=== PATIENT | female | born 1945 | race American Indian/Alaskan Native ===

== ENCOUNTER 2019-08-10 15:53 | Emergency (ER) | payer MEDICARE, SELFPAY ==
[2019-08-10 16:00] VITALS: BP 141/83; PULSE 101; RESP 22; TEMP 36.6; O2SAT 99; BMI 29.2
--- NOTE | 2019-08-10 16:11 | DI.RAD.S_ITS ---
PROCEDURE: XR CHEST 2V INDICATIONS: shortness of breath TECHNIQUE: 2 views of the chest were acquired. COMPARISON: None. FINDINGS: Surgical changes and devices: None. Lungs and pleura: Lungs are clear. No pleural effusions or pneumothorax. Mediastinum: Mediastinal contours are normal. Heart size is normal. Bones and chest wall: No suspicious bony abnormalities. Soft tissues appear unremarkable. IMPRESSION: No acute disease Dictated by: Jay Singer M.D. on 08/10/2019 at 17:19 Approved by: Jay Singer M.D. on 08/10/2019 at 17:19
[2019-08-10 16:46] LABS: Add Manual Diff / Slide Review NO; Basophils Absolute Auto 100 /uL (0-100); Basophils Percent Auto 1.1 % (0-2); Eosinophils Absolute Auto 300 /uL (0-450); Eosinophils Percent Auto 2.2 % (2-4); Hematocrit 48.8 % (36-46); Hemoglobin 16.4 g/dL (12.0-16.0); Lymphocytes Absolute Auto 3300 /uL (1100-4500); Mean Corpuscular HGB Conc 33.7 % (30-36); Mean Corpuscular Hemoglobin 31.5 PG (26-34); Mean Corpuscular Volume 93.6 fL (80-100); Monocytes Absolute Auto 700 /uL (0-900); Monocytes Percent Auto 5.8 % (3-14); Neutrophils Absolute Auto 7100 /uL (1500-7000); Neutrophils Percent Auto 61.9 % (50-75); Platelet Count 264 X10^3/uL (150-400); Red Blood Cell Count 5.21 X10^6/uL (4.0-5.2); Red Cell Distribution Width 13.8 % (11.6-14.8); White Blood Cell Count 11.4 X10^3/uL (4.5-11.0)
[2019-08-10 16:51] LABS: Prothrombin Time 11.3 SECONDS (10.1-12.7)
[2019-08-10 16:53] LABS: PTT Partial Thromboplastin Tim 33 SECONDS (26.4-36.2)
[2019-08-10 16:54] LABS: Alanine Aminotransferase 35 IU/L (9-52); Albumin 4.6 g/dL (3.5-5.0); Albumin Globulin Ratio 1.6 (1.0-2.8); Alkaline Phosphatase 75 U/L (38-126); Aspartate Aminotransferase 26 IU/L (14-36); BUN Creatinine Ratio 26.7 (6-22); Bilirubin Total 0.5 mg/dL (0.2-1.3); Blood Urea Nitrogen 16 mg/dL (7-17); Calcium 9.6 mg/dL (8.4-10.2); Carbon Dioxide 23 mmol/L (22-32); Chloride 104 mmol/L (98-107); Creatine Kinase 47 U/L (30-135); Estimated Glomerular Filt Rate > 60.0 mL/min (>60); Globulin 2.9 g/dL (1.7-4.1); Glucose 110 mg/dL (80-110); HEMOLYSIS < 15 (0-50); Lipase 110 U/L (23-300); Potassium 4.1 mmol/L (3.4-5.1); Sodium 138 mmol/L (137-145); Total Protein 7.5 g/dL (6.3-8.2)
[2019-08-10 17:06] LABS: B Type Natriuretic Peptide < 100 (<100); Troponin I < 0.012 ng/mL (0.01-0.034)
--- NOTE | 2019-08-10 18:07 | ED.SOB ---
HPI - SOB/Dyspnea General Chief Complaint: Shortness of Breath/Dyspnea Stated Complaint: HEART ISSUES Time Seen by Provider: 08/10/19 18:03 Source: patient Mode of arrival: Ambulatory Limitations: no limitations History of Present Illness HPI Narrative: The patient is here due to dyspnea. She has been under evaluation for dyspnea for the past year, approximately. She has a primary care doctor in [place], and she has been consult to both a youth care specialist and senior product development manager. She has undergone extensive evaluation, including a detailed Cardiology evaluation. More recently she has undergone pulmonology evaluation including PFTs, CT a chest and even more recently a high-resolution chest CT. No significant pulmonary abnormality has been discovered. She is a not a smoker. She has no asthma. She is on CPAP. She has been experiencing progressive dyspnea on exertion. She awoke this morning, with abnormally high CPAP settings. She was having dyspnea at rest. Dyspnea rest is a new, possibly progressive finding for her. She denies recent illness. She has no dyspnea while here in the ER. She speaks in full sentences without discomfort. The pulmonology evaluation is ongoing you in recent days. She is scheduled to visit her youth care specialist again soon. She has previously undergone echo, cardiac catheterization, a comprehensive evaluation. With a cough prazosin there was no evidence of CAD. She is on medications for hypertension. Records indicate the significant finding was diastolic heart failure, but not dramatic. Her last echo was about 1 year ago. Symptoms have been progressive over this time period. 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 Related Data Home Medications Medication Instructions Recorded Confirmed Calcium 500 + D 1 tab PO DAILY 08/10/19 08/10/19 Thera Tears 1 cap PO DAILY 08/10/19 08/10/19 amlodipine 7.5 mg PO DAILY 08/10/19 08/10/19 aspirin 81 mg PO DAILY 08/10/19 08/10/19 atorvastatin 10 mg PO DAILY 08/10/19 08/10/19 fluoxetine 20 mg PO DAILY 08/10/19 08/10/19 lamotrigine 200 mg PO DAILY 08/10/19 08/10/19 lisinopril 40 mg PO DAILY 08/10/19 08/10/19 metoprolol succinate 50 mg PO DAILY 08/10/19 08/10/19 [id number]-fish oil-D3 1 cap PO DAILY 08/10/19 08/10/19 omeprazole 20 mg PO DAILY 08/10/19 08/10/19 Allergies Allergy/AdvReac Type Severity Reaction Status Date / Time hydrocodone Allergy Severe Rash Verified 08/10/19 16:06 Sulfa (Sulfonamide Allergy Severe Rash Verified 08/10/19 16:06 Antibiotics) Review of Systems Review of Systems ROS Unobtainable: All systems reviewed & are unremarkable except as noted in HPI and below Constitutional Constitutional: Denies chills, Denies fever(s), Denies lethargy, Denies snoring and Denies weakness Eyes Eyes: Denies change in vision, Denies eye discharge, Denies irritation and Denies loss of vision ENT Ears, Nose, Mouth, and Throat: Denies change in voice, Denies neck pain and Denies sore throat Cardiovascular Cardiovascular: Denies chest pain, Denies irregular heart rhythm, Denies lightheadedness, Denies palpitations, Reports dyspnea, Reports dyspnea on exertion and Denies orthopnea Respiratory Respiratory: Denies cough, Reports dyspnea, Reports dyspnea on exertion, Denies snoring and Denies wheezing Comments: She is on CPAP for obstructive sleep apnea. Gastrointestinal Gastrointestinal: Denies abdominal pain, Denies change in bowel habits, Denies diarrhea, Denies nausea and Denies vomiting Musculoskeletal Musculoskeletal: Denies neck pain Integumentary/Breasts Skin/Breast: Denies pruritus, Denies erythema, Denies rash and Denies wounds Neurologic Neurologic: Denies confusion, Denies loss of vision and Denies weakness Psychiatric Psychiatric: Denies anxiety, Denies confusion and Denies depression Endocrine Endocrine: Denies palpitations Hematologic/Lymphatic Hematologic/Lymphatic: Denies easy bruising Allergic/Immunologic Allergic/Immunologic: Denies wheezing COUNTS INCLUDE 234 BEDS AT THE [facility] Medical History (Updated 08/11/19 @ 05:37 by Jose Aragon MD) Dyspnea (Acute) Hypertension (Acute) Obstructive sleep apnea (Acute) Urinary incontinence (Acute) Surgical History (Updated 08/11/19 @ 05:37 by Jose Aragon MD) No significant past surgical history (Acute) Social History Smoking Status: Never smoker Social History Smoking Status: Never smoker Exam Initial Vital Signs Initial Vital Signs: Vital Signs Temperature 97.8 F 08/10/19 16:00 Pulse Rate 101 H 08/10/19 16:00 Respiratory Rate 22 08/10/19 16:00 Blood Pressure 141/83 H 08/10/19 16:00 Pulse Oximetry 99 08/10/19 16:00 Const General: cooperative and well developed Nutritional Appearance: well nourished Orientation: alert, awake, oriented x3 and not confused [facility] Head: normocephalic and atraumatic Face and sinus: face symmetric Mouth: oral mucosae normal and moist mucous membranes Throat: posterior oropharynx normal, tonsils normal and uvula midline Eyes General: appearance normal, both eyes and all related structures Eyelids: eyelids normal Conjunctivae: conjunctivae normal Sclera: sclerae normal Pupils: PERRL EOM: EOM intact bilaterally Neck Neck: No JVD Chest Chest: normal inspection of the chest Resp Effort & Inspection: normal respiratory effort and able to speak in complete sentences Auscultation: clear to auscultation bilaterally, no rales, no rhonchi and no wheezes Cardio Rate: regular rate Rhythm: regular rhythm Heart Sounds: S1 normal, S2 normal, no click, no gallops, no murmurs and no rubs Pulses: normal peripheral pulses GI Inspection: non-distended Palpation: soft, no hepatosplenomegaly, No guarding, No pulsatile mass and No tender Auscultation: normal bowel sounds Back/Spine/Pelvis Back: normal to inspection Skin General: no rashes or lesions noted and No jaundice Neuro General: alert, oriented x3, gait normal and no focal motor deficits Speech: speech normal Extrem General: full ROM, no clubbing, cyanosis or edema and no pedal edema Psych Appearance: well kempt Mental Status: mental status grossly normal Attitude: cooperative Thought Content: normal Judgment: judgment good Course Course Course Narrative: Lab evaluation, EKG, and chest x-ray showed no evidence of acute cardiopulmonary problems. Per her history, her symptoms of a more chronic basis. Sleep apnea is been addressed. Hypertension has been addressed. The pulmonary evaluation is detailed, but not yielding significant findings. In the past evaluation her cardiac evaluation has been overall benign, but her symptoms have been progressive. I have similar concerns the raising her clinician's notes, possibly a cardiomyopathy that has been progressive over this past year. I discussed the necessity with the patient of following up with her youth care specialist for ongoing evaluation Orders Ordered: ED Orders 08/10/19 16:07 EKG-12 Lead Stat 08/10/19 16:11 Chest [XR chest 2V] Stat 08/10/19 16:35 B Type Natriuretic Peptide Stat Complete Blood Count AUTO DIFF Stat Comprehensive Metabolic Panel Stat Lipase Stat Partial Thromboplastin Time Stat Prothrombin Time INR Stat Troponin & CK Cardiac Panel Stat Vital Signs Vital signs: Vital Signs - 8 hr 08/10/19 16:00 08/10/19 18:30 08/10/19 19:00 Temperature 97.8 F Pulse Rate 101 H 92 H 93 H Respiratory Rate 22 17 20 Blood Pressure 141/83 H Blood Pressure [Right Arm] 139/70 131/64 Pulse Oximetry 99 99 97 08/10/19 19:33 Temperature Pulse Rate 88 Respiratory Rate 21 Blood Pressure Blood Pressure [Right Arm] 134/61 Pulse Oximetry 99 MDM - SOB/Dyspnea Lab Data Result diagrams: 08/10/19 16:35 08/10/19 16:35 Labs: Lab Results 08/10/19 08/10/19 08/10/19 Range/Units 16:35 16:35 16:35 WBC 11.4 H (4.5-11.0) X10^3/uL RBC 5.21 H (4.0-5.2) X10^6/uL Hgb 16.4 H (12.0-16.0) g/dL Hct 48.8 H (36-46) % MCV 93.6 (80-100) fL MCH 31.5 (26-34) PG MCHC 33.7 (30-36) % RDW 13.8 (11.6-14.8) % Plt Count 264 (150-400) X10^3/uL Neut % (Auto) 61.9 (50-75) % Lymph % (Auto) 29.0 (25-40) % Sumner % (Auto) 5.8 (3-14) % Eos % (Auto) 2.2 (2-4) % Baso % (Auto) 1.1 (0-2) % Neut # (Auto) 7100 H (6473-6999) /uL Lymph # (Auto) 3300 (7786-1780) /uL Sumner # (Auto) 700 (0-900) /uL Eos # (Auto) 300 (0-450) /uL Baso # (Auto) 100 (0-100) /uL PT 11.3 (10.1-12.7) SECONDS INR 1.0 (0.9-1.3) APTT 33 (26.4-36.2) SECONDS Sodium 138 (137-145) mmol/L Potassium 4.1 (3.4-5.1) mmol/L Chloride 104 (98-107) mmol/L Carbon Dioxide 23 (22-32) mmol/L BUN 16 (7-17) mg/dL Creatinine 0.60 (0.52-1.04) mg/dL Estimated GFR > 60.0 (>60) mL/min BUN/Creatinine Ratio 26.7 H (6-22) Glucose 110 (80-110) mg/dL Calcium 9.6 (8.4-10.2) mg/dL Total Bilirubin 0.5 (0.2-1.3) mg/dL AST 26 (14-36) IU/L ALT 35 (9-52) IU/L Alkaline Phosphatase 75 (38-126) U/L Total Creatine Kinase 47 (30-135) U/L CK-MB (CK-2) TNP CK-MB (CK-2) Rel Index TNP Troponin I < 0.012 (0.01-0.034) ng/mL B-Natriuretic Peptide < 100 (<100) Total Protein 7.5 (6.3-8.2) g/dL Albumin 4.6 (3.5-5.0) g/dL Globulin 2.9 (1.7-4.1) g/dL Albumin/Globulin Ratio 1.6 (1.0-2.8) Lipase 110 (23-300) U/L Imaging Data Chest x-ray: Radiologist's impression: [address] [address] XRay Report Signed Patient: [facility]#: [id number] : 7Acct:[id number] Age/Sex: 74 / FDate of Service: 08/10/19 Loc: ED Accession Number: [id number] Procedure: XR chest 2V Ordering Provider: Monique Harding D.O. PROCEDURE: XR CHEST 2V INDICATIONS: shortness of breath TECHNIQUE: 2 views of the chest were acquired. COMPARISON: None. FINDINGS: Surgical changes and devices: None. Lungs and pleura: Lungs are clear. No pleural effusions or pneumothorax. Mediastinum: Mediastinal contours are normal. Heart size is normal. Bones and chest wall: No suspicious bony abnormalities. Soft tissues appear unremarkable. IMPRESSION: No acute disease Dictated by: Jay Singer M.D. on 08/10/2019 at 17:19 Approved by: Jay Singer M.D. on 08/10/2019 at 17:19 ECG Data Attestation: I personally reviewed and interpreted this ECG as follows: (Normal sinus rhythm rate 86 beats per minute. Normal intervals. No ectopy. No acute ST T wave changes. Normal study.) Discharge Plan Departure Patient Disposition: Home Clinical Impression: Acute dyspnea Discharge Date/Time: 08/10/19 20:31 Instructions: Cardiomyopathy, DI for Shortness of Breath Activity Restrictions/Additional Instructions: There are multiple reasons for dyspnea. You have had an extensive workup. There does not appear to be a significant problem with your lungs. It appears your sleep apnea is well addressed. From your description and review of prior workup, my greatest concern would be your heart. Reviewing her clinical notes you have undergone an extensive cardiac workup. Your nose to mention diastolic heart failure. 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 Your symptoms are progressive. I will give you a discharge instruction regarding cardiomyopathy. Follow-up with your youth care specialist for ongoing evaluation. Prescriptions: No Action lamotrigine 200 mg tablet 200 mg PO DAILY RF: 0 metoprolol succinate 50 mg tablet extended release 24 hr 50 mg PO DAILY RF: 0 amlodipine 5 mg tablet 7.5 mg PO DAILY RF: 0 lisinopril 40 mg tablet 40 mg PO DAILY RF: 0 fluoxetine 20 mg capsule 20 mg PO DAILY RF: 0 atorvastatin 10 mg Tablet 10 mg PO DAILY RF: 0 omeprazole 20 mg Capsule,Delayed Release(Dr/Ec) 20 mg PO DAILY RF: 0 aspirin 81 mg Tablet,Chewable 81 mg PO DAILY RF: 0 Calcium 500 + D 1 tab PO DAILY RF: 0 Thera Tears capsule 1 cap PO DAILY RF: 0 tazmh-[id number]-cbp-epa-fish oil-D3 1 cap PO DAILY RF: 0
[2019-08-10 18:30] VITALS: BP 139/70; PULSE 92; RESP 17; O2SAT 99
[2019-08-10 19:00] VITALS: BP 131/64; PULSE 93; RESP 20; O2SAT 97
[2019-08-10 19:33] VITALS: BP 134/61; PULSE 88; RESP 21; O2SAT 99
== END 2019-08-10 20:31 | disposition home or self-care (01) ==
PROVIDERS: Emergency Medicine; Emergency Provider Emergency Medicine
DX: R06.00 Dyspnea, unspecified (principal); I10 Essential (primary) hypertension
CPT/HCPCS: 36415; 71046; 80053; 82550; 83690; 83880; 84484; 85025; 85610; 85730; 93005; 99283; 99285